=== PATIENT | male | born 2000 | race Caucasian/White ===

== ENCOUNTER 2020-04-21 07:04 | Emergency (ER) | payer SELFPAY ==
[~2020-04-21] VITALS: Ht 180.3 cm; Wt 88.5 kg
[2020-04-21 10:46] LABS: BILIRUBIN NEGATIVE (NEGATIVE); BLOOD NEGATIVE (NEGATIVE); CLARITY SL CLOUDY (CLEAR); COLOR YELLOW (YELLOW); GLUCOSE NEGATIVE (NEGATIVE); KETONE NEGATIVE (NEGATIVE); LEUKO ESTERASE NEGATIVE (NEGATIVE); NITRITE NEGATIVE (NEGATIVE); UROBILINOGEN 0.2 E.U./dl (0.2-1.0)
[2020-04-21 10:47] LABS: BACTERIA TRACE; EPITHELIAL CELLS 0-2; MUCOUS 1+; RBC 0-2 rbc/hpf (0-2); WBC 0-2 wbc/hpf (0-5)
[2020-04-21] MEDS ORDERED: CYCLOBENZAPRINE10 MG PO (11:31)
[2020-04-21] MEDS ORDERED: Motrin,Rufen800 MG PO (11:31)
== END 2020-04-21 11:42 | disposition home or self-care (01) ==
LOC: ED 07:04
PROVIDERS: Emergency Medicine
DX: S39.012A Strain of muscle, fascia and tendon of lower back, initial encounter (principal); X58.XXXA Exposure to other specified factors, initial encounter; Y93.89 Activity, other specified; Y92.89 Other specified places as the place of occurrence of the external cause; Y99.8 Other external cause status